=== PATIENT | female | born 1985 | race Caucasian/White ===

== ENCOUNTER 2016-03-25 15:26 | Outpatient (CLI) | payer BC | END 2016-03-25 15:27 | disposition home or self-care (01) | DX: Z13.79 Encounter for other screening for genetic and chromosomal anomalies (principal); Z01.89 Encounter for other specified special examinations ==

== ENCOUNTER 2016-05-27 12:29 | Outpatient (CLI) | payer BC | END 2016-05-27 12:30 | disposition home or self-care (01) | DX: Z36 Encounter for antenatal screening of mother (principal) ==

== ENCOUNTER 2016-07-20 14:51 | Outpatient (CLI) | payer BC | END 2016-07-20 14:52 | disposition home or self-care (01) | DX: Z36 Encounter for antenatal screening of mother (principal) ==

== ENCOUNTER 2016-09-16 08:00 | Outpatient (CLI) | payer BC | END 2016-09-16 08:01 | disposition home or self-care (01) | LOC: LAB.R 08:00 | PROVIDERS: ATTEND Nurse Practitioner Obstetrics & Gynecology | DX: Z36 Encounter for antenatal screening of mother (principal) | CPT/HCPCS: 87081 ==

== ENCOUNTER 2016-09-21 14:47 | Outpatient (CLI) | payer BC ==
[2016-09-21 15:18] VITALS: BP 119/69
== END 2016-09-21 15:40 | disposition home or self-care (01) ==
LOC: WFO 14:47 → OB 14:50 → WFO 15:40
PROVIDERS: ATTEND Obstetrics & Gynecology
DX: Z34.03 Encounter for supervision of normal first pregnancy, third trimester (principal)
CPT/HCPCS: 59025

== ENCOUNTER 2016-10-15 13:37 | Inpatient (IN) | payer BC ==
[2016-10-15] MEDS ORDERED: SODIUM CHLORIDE FLUSH 0.9% 10 ML SYRINGE IVP ONE (14:27)
[2016-10-15] MEDS ORDERED: SODIUM CHLORIDE FLUSH 0.9% 10 ML SYRINGE IVP PRN (14:35)
[2016-10-15] MEDS ORDERED: fentaNYL 100 MCG/2 ML VIAL IVP PRN (14:35)
--- NOTE | 2016-10-15 14:47 | HISTORY & PHYSICAL EXAMINATION ---
Admit History - Instructions [place]/Slash: -Left hand click circles element as positive or present. -Right hand click slashes element as negative or not present. - Visit Reason Visit Reason: Contractions - Care: positive: [facility] Risk/History: positive: None Complications This : positive: None Smoking Status: Never smoker - Mother's Labs Mother's Blood Type: positive: B Mother's RH: positive: Positive GBS: positive: Group B Step Negative Rubella Status: positive: Immune - Other Maternal History Other Maternal History: HPI: This 31yo at 40.2wks gestation by L not c/w 6wk U/S who presents for contractions. Upon evaluation she was noted to be /-1 with intact membranes. She was admitted to L&D for management. 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 PSHx: Surgery on broken arm as a child Social Hx: Never smoker, no ETOH or IVDA Family Hx: Alzheimres - paternal GM; colon cancer-maternal GM; prostate cancer- father age 62; Diabetes - brother age 23; Depression - mother 18, brother 22; Alcohol or drug problem - mother; mental illness - mother age 18; Heart attack/ disease - mother; RA- maternal grandmother, maternal grandfather, maternal aunt Meds: PNV, probiotics Allergies NKA labs: 02/23/16 Blood type B, Rh pos, Antibody neg Hgb 13.6, Hct 39.5, PLT 223 Rubella immune HIV non-reactive GC/CT neg Hep B: neg Treponema non-reactive [place]: 04/01/16- neg, female 28 week labs: 07/21/16 Hgb 12.1 Antibody neg 1 hour GTT 115 Tdap 07/28/16 Ultrasounds: 05/30/16 FAS WNL, anterior placenta, no previa, normal HIREN. 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 Reece for synechiae evaluation : none seen on exam Assessment: 31yo @ 40.2wks gestation by 6 week U/S Active labor Desires epidural for pain management but comfortable laboring without pain management at this time Plan: Admit to L&D Intermittent monitoring Activity and nutrition as indicated; encouraged position changes Epidural per maternal request Anticipate spontaneous vaginal delivery Physical - Abdominal Exam Vital Signs: Temp Pulse Resp BP Pulse Ox 36.6 C 60 20 119/75 100 10/15/16 13:47 10/15/16 13:47 10/15/16 13:47 10/15/16 13:47 10/15/16 13:47
[2016-10-15 14:51] LABS: BASOPHILS % (AUTO) 0.2 %; EOSINOPHILS # (AUTO) 0.1 10^3/uL (0.0-0.7); EOSINOPHILS % (AUTO) 0.4 %; HCT - HEMATOCRIT 37.1 % (37.0-47.0); HGB - HEMOGLOBIN 12.7 g/dL (12.0-16.0); LYMPHOCYTES # (AUTO) 1.1 10^3/uL (1.5-3.5); LYMPHOCYTES % (AUTO) 8.3 %; MEAN CORPUSCULAR HGB CONC 34.4 g/dL (32.0-36.0); MEAN CORPUSCULAR VOLUME 87.2 fL (81.0-99.0); MEAN PLATELET VOLUME 6.9 fL (7.9-10.8); MONOCYTES # (AUTO) 0.9 10^3/uL (0.0-1.0); MONOCYTES % (AUTO) 6.6 %; NEUTROPHILS # (AUTO) 10.8 10^3/uL (1.5-6.6); NEUTROPHILS % (AUTO) 84.5 %; RED BLOOD COUNT 4.25 10^6/uL (4.20-5.40); RED CELL DISTRIBUTION WIDTH 13.5 % (12.0-15.0); UNCORRECTED WHITE BLOOD COUNT 12.8 x10^3/uL; WHITE BLOOD COUNT 12.8 x10^3/uL (4.8-10.8)
[2016-10-15] MEDS ORDERED: ONDANSETRON 4 MG/2 ML VIAL IVP PRN (15:00)
--- NOTE | 2016-10-15 15:00 | PROVIDER PROGRESS NOTE ---
Labor Progress Note - Uterine Monitoring Uterine Monitoring Mode: positive: External toco Contraction Intensity: positive: Moderate to strong Uterine Resting Tone: positive: Soft - Monitoring Monitor Mode: positive: External ultrasound Heart Rate Variability: positive: Moderate (6-25 bmp) Accelerations: positive: Present, 15x15 Decelerations: positive: None Strip Review: positive: Category I - Vaginal Exam Dilation (in cm): 4 Effacement (%): 90 Station: -1 - Labor Progress Note Labor Progress Note/Additional Text: S: Breathing through contractions while in bed on the monitor. Rating contractions 7/10 but breathing through them without difficulty. Desires to ambulate, may get in the jacuzzi at some point. Has a slight bout of nausea after the car ride here but feeling better. Comfortable without an epidural at this time. O: SVE on arrival /-1. FHR Baseline 130, moderate variability, + accels, no decels. Contractions palpate firm every 5-6 minutes lasting 40-60 seconds. BOW intact. A: 31yo @ 40.2 wks gestation by 6 week U/S. Spontaneous active labor heart tones Category I P: Continue expectant management. Encouraged ambulation and position changes. Reevaluate in 2 hours or sooner PRN.
[2016-10-15] MEDS: LACTATED RINGERS 1,000 ML IV SCH ×2 (16:24→17:50)
[2016-10-15] MEDS ORDERED: LIDOCAINE 1% 50 ML MDV ONE (17:27)
[2016-10-15] MEDS ORDERED: OXYTOCIN/LACTATED RINGERS 250 ML IV ONE ×2 (17:27→19:42)
[2016-10-15] MEDS ORDERED: fent/BUPIV 2 MCG/0.125% 250 ML EP ONE (17:43)
--- NOTE | 2016-10-15 18:12 | PROVIDER PROGRESS NOTE ---
Labor Progress Note - Uterine Monitoring Uterine Monitoring Mode: positive: External toco Contraction Intensity: positive: Strong Uterine Resting Tone: positive: Soft - Monitoring Monitor Mode: positive: External ultrasound Heart Rate Variability: positive: Moderate (6-25 bmp) Accelerations: positive: Present, 15x15 Decelerations: positive: Variable Strip Review: positive: Category I - Vaginal Exam Dilation (in cm): 8 Effacement (%): 100 Station: 1 Cervical Position: Anterior - Labor Progress Note Labor Progress Note/Additional Text: S: Pt now feeling improvement in her pain after placement of epidural. Feeling lots of pelvic pressure. supportive at the bedside. O: SVE prior to epidural placement 8cm (thick anterior lip)/100/+1. Contractions palpate firm every 2-3 minutes with soft resting tone. Intact membranes. A: 31yo @ 40.2wks gestation by 6 week U/S Active labor Epidural GBS neg P: Continue expectant management May consider AROM once patient is comfortable Anticipate spontaneous vaginal delivery.
[2016-10-15] MEDS ORDERED: MINERAL OIL LIGHT 10 ML MC ONE (18:49)
[2016-10-15] MEDS ORDERED: WITCH HAZEL/GLYCERIN 1 EACH MED..PAD TOP PRN (19:42)
[2016-10-15] MEDS ORDERED: HYDROCORTISONE/PRAMOXINE 10 GM PR PRN (19:42)
--- NOTE | 2016-10-15 19:48 | DELIVERY NOTE ---
Delivery Note - Labor Labor: positive: Spontaneous - Delivery Method Delivery Method: positive: Spontaneous vaginal delivery - Presentation Presentation: positive: Vertex, DELTA - left occiput anterior - Nuchal Cord Nuchal Cord: positive: None - Amniotic Fluid Description Amniotic Fluid Description: positive: Clear - Episiotomy Type Episiotomy Type: positive: None - Laceration Laceration: positive: None, Perineal - Delivery Outcome Delivery Outcome: positive: Livebirth - [place]: positive: Placed in direct skin contact with mother, Stimulated, Warmed , Alexander used sex: positive: Female - Cord Cord: positive: 3 vessels - Placenta Placenta: positive: Intact, Spontaneous - Estimated Blood Loss Estimated Blood Loss (in cc): 350 - Post Delivery Events Post Delivery Events: positive: No post delivery events - Delivery Comments (Free Text/Narrative) Delivery Comments (Free Text/Narrative): Labor: This 31yo @ 40.2wks gestation by 6 week U/S presented at approximately 0230 in active labor. Cervix was 4/90/-1 and vertex. FHR pattern demonstrated baseline 130s in a Category I pattern throughout. Normal labor course. Epidural placed upon maternal request. SROM occurred at 1842 with pushing and was noted to be a moderate amount of clear fluid. Normal SVB of a viable female infant name Addaline. No nucha. Apgars 9/9 at 1 and 5 min respectively at 1923 on 10/15/2016. The was placed on maternal abdomen, stimulated, dried, and placed skin to skin. The umbilical cord was allowed to stop pulsating at which time it was double clamped and cut by MOB. Cord blood was obtained. Placenta delivered spontaneously and intact at 1931. 3VC. Pitocin was administered via IV for hemostasis. EBL 350mL. Uterine fundus firm and there is no excessive bleeding. The perineum, vagina, and cervix were inspected and found to be intact. There is a very mild, approximately 1 cm laceration on the perineum that is entirely hemostatic and was left unrepaired. initiated. Family bonding well. Both mother and baby were left in stable condition.
[2016-10-15] MEDS ORDERED: LACTATED RINGERS 1,000 ML IV SCH (20:00)
[2016-10-15] MEDS ORDERED: SODIUM CHLORIDE FLUSH 0.9% 10 ML SYRINGE IVP SCH (22:00)
[2016-10-15] MEDS: DOCUSATE SODIUM 100 MG CAPSULE PO SCH (22:18)
[2016-10-15] MEDS: ACETAMINOPHEN 500 MG TABLET PO SCH (22:18)
[2016-10-15] MEDS: IBUPROFEN 800 MG TABLET PO SCH (22:19)
[2016-10-16] MEDS: IBUPROFEN 800 MG TABLET PO SCH ×4 (04:09→21:27)
--- NOTE | 2016-10-16 04:11 | PROVIDER PROGRESS NOTE ---
Subjective - Subjective Subjective: S: Bonding well with baby. without difficulty. Reports baby had some gagging followed by spitting up clear fluid which was a little worrisome to her but feeling more comfortable after help from RN and some reassurance. Using the bulb suction. Bleeding decreased. Pain well controlled with Ibuprofen. Perineum comfortable. O: Heart RRR w/o M/G/R, Lungs CTAB. Abdomen soft and nontender. Fundus firm at U -4. Bilateral LE's trace edema. A: 31yo -->P1 PPD#1 s/p TSVB of viable female P: Continue routine PP self care and meds. Plan for discharge home tomorrow on PPD#2. Objective - Vital Signs/Intake & Output Vital Signs: Vital Signs x48h Temp Pulse Resp BP Pulse Ox 10/16/16 00:00 35.7 C L 49 L 14 105/61 99 10/15/16 21:00 58 L 18 114/63 100 10/15/16 20:57 63 18 109/68 10/15/16 20:42 65 18 118/71 10/15/16 20:27 71 18 99/68 98 10/15/16 20:12 65 18 107/67 98 Intake & Output: Intake & Output 10/13/16 10/14/16 10/15/16 10/16/16 23:59 23:59 23:59 23:59 Intake Total 1750 Output Total 600 Balance 1150 - Lab Results Fish Bones: 10/15/16 14:30 Other Labs: Lab Results x24hrs 10/15/16 Range/Units 14:30 WBC 12.8 H (4.8-10.8) x10^3/uL RBC 4.25 (4.20-5.40) 10^6/uL Hgb 12.7 (12.0-16.0) g/dL Hct 37.1 (37.0-47.0) % MCV 87.2 (81.0-99.0) fL MCH 30.0 (27.0-31.0) pg MCHC 34.4 (32.0-36.0) g/dL RDW 13.5 (12.0-15.0) % Plt Count 183 (130-450) 10^3/uL MPV 6.9 L (7.9-10.8) fL Neut # 10.8 H (1.5-6.6) 10^3/uL Lymph # 1.1 L (1.5-3.5) 10^3/uL [place] # 0.9 (0.0-1.0) 10^3/uL Eos # 0.1 (0.0-0.7) 10^3/uL Baso # 0.0 (0.0-0.1) 10^3/uL Absolute Nucleated RBC 0.00 x10^3/uL Nucleated RBCs 0.0 /100WBC
[2016-10-16] MEDS: ACETAMINOPHEN 500 MG TABLET PO SCH ×3 (06:13→21:27)
[2016-10-16] MEDS: DOCUSATE SODIUM 100 MG CAPSULE PO SCH ×2 (09:30→21:27)
[2016-10-17] MEDS: IBUPROFEN 800 MG TABLET PO SCH (03:37)
[2016-10-17] MEDS: ACETAMINOPHEN 500 MG TABLET PO SCH (05:31)
[2016-10-17 07:56] VITALS: BP 110/60
--- NOTE | 2016-10-17 08:40 | Discharge Plan ---
Discharge Plan Disposition: 01 Home, Self Care Condition: Good Diet: Regular Activity Restrictions: No Restrictions Shower Restrictions: No Driving Restrictions: No Weight Bearing: Full Weight Additional Instructions or Follow Up instructions: S: Bonding well with baby. without difficulty. Baby cluster fed throughout the night so she and James are both tired. Perineum comfortable. Pain well controlled with ibuprofen. Bleeding decreased. O: Heart RRR w/o M/G/R, lungs CTAB. Abdomen soft and nontender with fundus firm at U-4. Perineum intact, light lochia rubra. Bilateral LE's no edema. A: 31yo -->P1 S/p TSVB of viable female at 40.2wks gestation P: Reviewed pp self care and warning signs. Planning Mirena IUD for contraception at 6 weeks pp. Rx for ibuprofen 800 mg #60 with 1 refill, and Colace 100mg #60 with 1 refill, sent to [facility] in [place]. Pt to follow up with myself at 2 weeks . She verbalized understanding and agrees to above plan. Denies further questions or concerns. No Smoking: If you smoke, Please STOP! Call for help. Follow-up with: Paty Burgess CNM, [employer] TRA[employer] [Provider Admit Priv/Credential] -
--- NOTE | 2016-10-17 10:50 | Labor Flowsheet ---
Labor Flowsheet Datetime Report Generated by CPN: 10/17/2016 10:50 Datetime: 10/17/2016 07:52 VITAL SIGNS NBP Sys/[place]irah/Mean (mmHg): 110 : 60 : 71 Pulse: 54 Temperature (F): 97.5 Temperature (C): 36.4 Temperature (C): 36.4 LaborFlag: Labor Datetime: 10/16/2016 23:45 SpO2 (%): 100 Datetime: 10/15/2016 19:23 Stage of : Labor UTERINE ACTIVITY Monitor Mode: External Frequency (min): 2 Quality: Strong Duration (sec): pushing Resting Tone (Palpate): Relaxed ASSESSMENT A Monitor Mode: Telemetry FHR Baseline Rate : 120 Variability: Moderate 6-25 bpm Accelerations: 15X15 Decelerations: Early; Variable Category: Category II Datetime: 10/15/2016 18:55 Membrane Status: Ruptured Membranes Rupture Method: Spontaneous Amniotic Fluid Color: Clear Amniotic Fluid Amount: Large Amniotic Fluid Odor: Normal Datetime: 10/15/2016 18:38 VAGINAL EXAM Dilatation (cm): 10.0 Effacement (%): 100 Station: 2 Exam by: A. Jenifer, Cervix, Consistency: Soft Cervix, Position: Midposition Datetime: 10/15/2016 18:01 ANESTHESIA Anesthesia Plans: Epidural Epidural Procedure: Completed Epidural Procedure Other: Pump Started Datetime: 10/15/2016 17:54 Patient Position/Activity: Left Tilt Datetime: 10/15/2016 17:48 Patient Care Comments: sitting for epidural Datetime: 10/15/2016 17:37 PROCEDURE TIME OUT Procedure Verify: Correct Patient Identity; Correct Side and Site are Marked; Accurate Procedure Co nsent Form; Agreement on Procedure to be Done; Correct Patient Position Datetime: 10/15/2016 17:30 Provider Reviewed Strip: Yes Strip Reviewed by: Maya Burgess CNM COMMUNICATION Communication: Provider at Bedside Notification Reason: Pain Datetime: 10/15/2016 17:20 Anesthesia Comments: anesthesia provider here Datetime: 10/15/2016 17:13 Contraction Comments: N/V Oxygen Method: Room Air Datetime: 10/15/2016 16:46 Communication Comments: A. Jenifer notified pt. request epidural Datetime: 10/15/2016 16:28 Vaginal Bleeding: None Datetime: 10/15/2016 16:25 PATIENT CARE IV/Blood Work: IV Infusing per Order
== END 2016-10-17 10:00 | disposition home or self-care (01) | DRG 775 ==
LOC: WFO 13:37 → FBP 13:39 → WFO 14:34 → FBP 14:35
PROVIDERS: ADMIT Nurse Practitioner Obstetrics & Gynecology; ATTEND Nurse Practitioner Obstetrics & Gynecology
PROC: 10E0XZZ Delivery of Products of Conception, External Approach (ICD-10-PCS; principal; 2016-10-15)
DX: O70.9 Perineal laceration during delivery, unspecified (principal); Z3A.40 40 weeks gestation of pregnancy; Z37.0 Single live birth
CPT/HCPCS: 85025; 99212

== ENCOUNTER 2019-04-29 19:07 | Outpatient (CLI) | payer OTHER ==
--- NOTE | 2019-04-29 23:29 | Ultrasound Report ---
Reason: ACUTE PELVIC PAIN Procedure Date: 04/29/2019 Accession Number: [id number] / [id number] Procedure: US - Pelvic w/Transvaginal CPT Code: Final Report FULL RESULT: EXAM: PELVIC ULTRASOUND EXAM DATE: 04/29/2019 07:50 PM. CLINICAL HISTORY: ACUTE PELVIC PAIN. COMPARISON: None. TECHNIQUE: Realtime transabdominal pelvic scan performed to identify the uterus and adnexa and as an overview of other pelvic structures, followed by transvaginal scan to provide greater detail of the uterus and adnexa, with static image documentation. FINDINGS: Uterus: 7.5 x 3.0 x 4.8 cm, volume 57 cc. Anteverted position. Normal overall size and echotexture. Masses: None. Endometrium: 4 mm. IUD present within the endometrium. Cervix: Unremarkable. Right Ovary: 2.4 x 1.5 x 2.4 cm, volume 4.3 cc. Normal echotexture and blood flow. Left Ovary: 2.4 x 1.3 x 2.6 cm, volume 4.4 cc. Normal echotexture and blood flow. Free Fluid: None. Other: None. IMPRESSION: No acute sonographic abnormalities. RADIA
== END 2019-04-29 19:08 | disposition home or self-care (01) ==
LOC: DI 19:07
PROVIDERS: ATTEND Nurse Practitioner Obstetrics & Gynecology
DX: R10.2 Pelvic and perineal pain (principal)
CPT/HCPCS: 76830; 76856

== ENCOUNTER 2020-06-17 08:32 | Outpatient (CLI) | payer OTHER ==
[2020-06-17 14:25] LABS: BASOPHILS % (AUTO) 0.9 %; EOSINOPHILS # (AUTO) 0.2 10^3/uL (0.0-0.7); EOSINOPHILS % (AUTO) 4.5 %; HCT - HEMATOCRIT 40.1 % (37.0-47.0); HGB - HEMOGLOBIN 13.1 g/dL (12.0-16.0); LYMPHOCYTES # (AUTO) 1.5 10^3/uL (1.5-3.5); LYMPHOCYTES % (AUTO) 45.7 %; MEAN CORPUSCULAR HEMOGLOBIN 29.4 pg (27.0-31.0); MEAN CORPUSCULAR HGB CONC 32.7 g/dL (32.0-36.0); MEAN CORPUSCULAR VOLUME 89.9 fL (81.0-99.0); MEAN PLATELET VOLUME 9.1 fL (7.9-10.8); MONOCYTES # (AUTO) 0.3 10^3/uL (0.0-1.0); MONOCYTES % (AUTO) 8.9 %; NEUTROPHILS # (AUTO) 1.4 10^3/uL (1.5-6.6); PLT - PLATELET COUNT 200 10^3/uL (130-450); RED BLOOD COUNT 4.46 10^6/uL (4.20-5.40); RED CELL DISTRIBUTION WIDTH 12.6 % (12.0-15.0); WHITE BLOOD COUNT 3.4 x10^3/uL (4.8-10.8)
[2020-06-17 15:50] LABS: ALBUMIN 4.5 g/dL (3.2-5.5); ALKALINE PHOSPHATASE 43 IU/L (42-121); ALT ALANINE AMINOTRANSFERASE 23 IU/L (10-60); AST ASPARTATE AMINOTRANSFERASE 24 IU/L (10-42); BILIRUBIN,TOTAL 0.7 mg/dL (0.2-1.0); BUN - BLOOD UREA NITROGEN 16 mg/dL (6-20); CALCIUM 8.9 mg/dL (8.5-10.3); CARBON DIOXIDE - CO2 27 mmol/L (21-32); CHLORIDE 103 mmol/L (101-111); CHOL/HDL RATIO 2.6 (<4.4); CHOLESTEROL 152 mg/dL; CREATININE 0.8 mg/dL (0.4-1.0); GFR - MDRD 82 (>89); GLUCOSE 86 mg/dL (70-100); HDL CHOLESTEROL 59 mg/dL; LDL CHOLESTEROL,CALCULATED 82 mg/dL; LDL/HDL RATIO 1.4 (<4.4); POTASSIUM 3.5 mmol/L (3.5-5.0); SODIUM 139 mmol/L (135-145); TOTAL PROTEIN 6.8 g/dL (6.7-8.2); TRIGLYCERIDES 57 mg/dL; VLDL CHOLESTEROL 11 mg/dL
[2020-06-17 15:51] LABS: THYROID STIMULATING HORMONE 1.48 uIU/mL (0.34-5.60)
== END 2020-06-17 08:33 | disposition home or self-care (01) ==
LOC: LAB.S 08:32
PROVIDERS: ATTEND Physician Assistant
DX: F33.9 Major depressive disorder, recurrent, unspecified (principal); Z79.899 Other long term (current) drug therapy; F42.8 Other obsessive-compulsive disorder; F41.8 Other specified anxiety disorders
CPT/HCPCS: 36415; 80053; 80061; 83721; 84443; 85025

== ENCOUNTER 2021-11-22 13:51 | Outpatient (CLI) | payer OTHER ==
[2021-11-22 20:32] LABS: THYROID STIMULATING HORMONE 1.09 uIU/mL (0.34-5.60)
[2021-11-22 20:34] LABS: FREE T3 3.05 pg/mL (2.5-3.9)
== END 2021-11-22 13:52 | disposition home or self-care (01) ==
LOC: LAB.S 13:51
PROVIDERS: ATTEND Nurse Practitioner Family
DX: R94.6 Abnormal results of thyroid function studies (principal)
CPT/HCPCS: 36415; 84443; 84481